=== PATIENT | female | born 1965 | race Caucasian/White ===

== ENCOUNTER 2017-12-26 14:50 | Emergency (ER) | payer OTHER ==
[~2017-12-26 14:50] MED LIST: NAPR550 PO; PHENTAB PO; Z.0.NO CURRENT MEDS
[2017-12-26 15:00] VITALS: BP_SYST 149; BP_DIAS 1; BP_DIAS 77; PULSE 72; RESP 16; TEMP 98.8; O2SAT 97
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
[2017-12-26] MEDS ORDERED: METHOCARBAMOL 500 MG TAB PO ONE (15:30)
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
[2017-12-26] MEDS ORDERED: ROBA750T PO (16:10)
[2017-12-26] MEDS ORDERED: IBUP-232 PO (16:10)
== END 2017-12-26 16:20 | disposition home or self-care (01) ==
LOC: NEPK 14:50
DX: S40.021A Contusion of right upper arm, initial encounter (principal); V49.50XA Passenger injured in collision with unspecified motor vehicles in traffic accident, initial encounter; Y92.488 Other paved roadways as the place of occurrence of the external cause
CPT/HCPCS: 73060; 99283